=== PATIENT | female | born 1965 | race Two or more races ===

== ENCOUNTER 2017-02-22 22:17 | Emergency (ER) | payer MEDICAID ==
[~2017-02-22] VITALS: Ht 152.4 cm; Wt 62.6 kg
[2017-02-22 23:25] LABS: Basophils # (auto) 0 uL; Basophils % (auto) 0.5 % (0.0-2.0); Eosinophils # (auto) 0.1 uL; Eosinophils % (auto) 1.9 % (0.0-7.0); Hematocrit 40.9 % (36.0-46.0); Hemoglobin 13.7 g/dL (12.2-16.2); Lymphocytes # (auto) 1.8 uL; Lymphocytes % (auto) 29.9 % (10.0-50.0); Mean Corpuscular Hemoglobin 31.2 pg (28.0-32.0); Mean Corpuscular Hgb Conc. 33.6 g/dL (32.0-36.0); Mean Corpuscular Volume 93.1 fL (80.0-100.0); Monocytes # (auto) 0.8 uL; Neutrophils # (auto) 3.3 uL; Neutrophils % (auto) 54.7 % (37.0-80.0); Nucleated Red Blood Cells % 0.1 %; Platelet Count (auto) 224 10^3/uL (140-450); Red Blood Cells 4.39 10^6/uL (4.0-5.20); Red Cell Distribution Width 13.1 % (11.8-14.3)
[2017-02-22 23:48] LABS: Potassium 3.5 mmol/L (3.5-5.1)
[2017-02-22 23:52] LABS: Albumin 3.2 g/dL (3.4-5.0); BUN/Creatinine Ratio 23.6; Calcium 8.6 mg/dL (8.5-10.1)
[2017-02-22 23:55] LABS: Bilirubin, Total 0.5 mg/dL (0.2-1.0); Total Protein 7.8 g/dL (6.4-8.2)
[2017-02-23 00:38] LABS: Urine Blood Negative /uL (Negative); Urine Specific Gravity 1.048 (1.001-1.035)
[2017-02-23 00:41] LABS: Urine WBC 2 /hpf (0 - 5)
[2017-02-23 00:42] LABS: Urine Bacteria 2+ /hpf (None Seen); Urine Mucus RARE (None Seen)
[2017-02-23] MEDS ORDERED: SODIUM CHLORIDE 0.9% 1,000 ML IV ONE ×2 (04:00→07:38)
[2017-02-23] MEDS ORDERED: NALBUPHINE HCL 10 MG/1ml INJECTION IV ONE (07:45)
[2017-02-23] MEDS ORDERED: ONDANSETRON ODT 4 MG TAB PO ONE (07:45)
[2017-02-23 11:57] VITALS: BP 122/83
== END 2017-02-23 11:57 | disposition home or self-care (01) ==
LOC: ER 22:17
DX: K52.9 Noninfective gastroenteritis and colitis, unspecified (principal); N39.0 Urinary tract infection, site not specified; E11.65 Type 2 diabetes mellitus with hyperglycemia; E44.1 Mild protein-calorie malnutrition; I10 Essential (primary) hypertension; Z68.27 Body mass index [BMI] 27.0-27.9, adult; Z90.49 Acquired absence of other specified parts of digestive tract
CPT/HCPCS: 36415; 71046; 74176; 80053; 81001; 82150; 82962; 83690; 83735; 85025; 87804; 93005; 96361; 96374; 99285; J2300; J7030; Q0162; 87400